=== PATIENT | male | born 1990 | race Caucasian/White ===

== ENCOUNTER 2024-05-01 14:50 | Emergency (ER) | payer MEDICAID, OTHER ==
[~2024-05-01] VITALS: Ht 180.3 cm; Wt 65.0 kg
[2024-05-01 15:00] VITALS: O2SAT 100
[2024-05-01 15:01] VITALS: BP 117/82; PULSE 86; RESP 18; TEMP 98.3; O2SAT 100
[2024-05-01] MEDS ORDERED: IBUP-2029 MT (19:16)
== END 2024-05-01 19:40 | disposition home or self-care (01) ==
LOC: ER 14:50
DX: S02.2XXA Fracture of nasal bones, initial encounter for closed fracture (principal); M25.511 Pain in right shoulder; Y04.0XXA Assault by unarmed brawl or fight, initial encounter; Y93.89 Activity, other specified; Y92.89 Other specified places as the place of occurrence of the external cause; Y99.8 Other external cause status
CPT/HCPCS: 70486; 73030; 73060; 99284